=== PATIENT | female | born 1960 | race Caucasian/White ===

== ENCOUNTER → 2017-01-31 | Day surgery (SDC) | payer MEDICARE | END | disposition home or self-care (01) | LOC: SDCH 07:51 | DX: Z12.11 Encounter for screening for malignant neoplasm of colon (principal); K31.84 Gastroparesis; K44.9 Diaphragmatic hernia without obstruction or gangrene; I10 Essential (primary) hypertension; I25.10 Atherosclerotic heart disease of native coronary artery without angina pectoris; K21.9 Gastro-esophageal reflux disease without esophagitis; G43.909 Migraine, unspecified, not intractable, without status migrainosus; F17.210 Nicotine dependence, cigarettes, uncomplicated; Z85.828 Personal history of other malignant neoplasm of skin; Z88.5 Allergy status to narcotic agent; Z88.8 Allergy status to other drugs, medicaments and biological substances; Z90.49 Acquired absence of other specified parts of digestive tract; Z90.5 Acquired absence of kidney | CPT/HCPCS: J2704; J2765 ==